=== PATIENT | male | born 1960 | race Caucasian/White ===

== ENCOUNTER 2023-01-05 14:50 | Emergency (ER) | payer OTHER, SELFPAY ==
[2023-01-05 14:53] VITALS: BP 160/90; PULSE 84; RESP 20; TEMP 36.8; O2SAT 100
--- NOTE | 2023-01-05 15:08 | ED.DENTAL ---
HPI - Dental/Oral General Chief complaint: Dental/Oral Stated complaint: facial swelling Time Seen by Provider: 01/05/23 15:02 Source: patient Mode of arrival: ambulatory Limitations: no limitations History of Present Illness HPI Narrative: 62-year-old male dental caries presents to the ER with left facial and left jaw swelling. He also complains of left lower and left upper tooth pain. He has had this for a couple of days. No fever or chills. MD Complaint: tooth pain Onset (ago): day(s) Duration: constant Severity: severe Relieving factors: nothing Exacerbating factors: cold and heat Context: history of dental caries Associated symptoms: gum swelling Treatment prior to arrival: none Related Data Allergies Allergy/AdvReac Type Severity Reaction Status Date / Time No Known Allergies Allergy Verified 01/05/23 15:10 Review of Systems Review of Systems: All systems reviewed & are unremarkable except as noted in HPI and below Constitutional: Constitutional: Reports as per HPI and Reports no additional constitutional complaints Eyes: Eyes: Reports as per HPI and Reports no additional eye complaints ENT: Reports system reviewed and no additional complaints, except as documented and Reports as per HPI Comments: Dental pain with left facial swelling with left upper jaw swelling Cardiovascular: Cardiovascular: Reports as per HPI and Reports no additional cardiovascular complaints Respiratory: Respiratory: Reports as per HPI and Reports no additional respiratory complaints Gastrointestinal: Gastrointestinal: Reports as per HPI Genitourinary: Genitourinary: Reports no additional male genitourinary complaints Musculoskeletal: Musculoskeletal: Reports no additional musculoskeletal complaints and Reports as per HPI Integumentary/Breasts: Skin/Breast: Reports system reviewed and no additional complaints, except as docu and Reports as per HPI Neurologic: Reports system reviewed and no additional complaints, except as documented and Reports as per HPI Psychiatric: Psychiatric: Reports no additional psychiatric complaints and Reports as per HPI Endocrine: Endocrine: Reports no additional endocrine complaints and Reports as per HPI Hematologic/Lymphatic: Hematologic/Lymphatic: Reports no additional hematologic/lymphatic complaints and Reports as per HPI Allergic/Immunologic: Allergic/Immunologic: Reports no additional allergic/immunologic complaints and Reports as per HPI PMF Past Medical History Medical History (Updated 01/05/23 @ 15:15 by Autsin Mansfield MD) Dental caries Social History Social History (System 09/04/19 @ 12:04 by Kaley Aguilar) Smoking status: Current every day smoker Exam Narrative: hypertension with a blood pressure of 160/90. Const: General: ill appearing Orientation/consciousness: patient oriented x3 Limitations: no limitations HENMT: Head: normal to inspection Ears: external ears normal Face/Nose/Sinus: Normal external nose present Face and sinus: normal facial exam Mouth: Yes Normal oral and palatal mucosa present Teeth and gingiva: dentition normal ( Extensive dental caries with multiple missing teeth. ) Throat: posterior oropharynx normal Other: Extensive dental caries with multiple fractured teeth. Swelling of gums around the carious teeth. Eyes: Conjunctivae: conjunctivae normal Pupils: Equal, round and reactive pupils present EOM: EOMs intact bilaterally Direct Ophthalmoscopy: no photophobia Neck: Neck: normal visual inspection, no lymphadenopathy and no meningeal signs Chest: Chest palpation & inspection: normal inspection of the chest Resp: Effort & Inspection: normal respiratory effort Auscultation: clear to auscultation bilaterally Cardio: Rate: regular rate Rhythm: regular rhythm GI: Auscultation: normal bowel sounds : General: Yes no CVA tenderness Back/Spine/Pelvis: Back: no CVA tenderness Skin: General skin
[2023-01-05] MEDS: HYDROcodone/acetaminophen (*CRX) 5-325 MG TABLET 1 TAB PO (15:15)
--- NOTE | 2023-01-05 15:43 | PC.NURSE ---
On 01/05/23, the student, [JW CLIFTON ], provided care and completed [facility] documentation on this patient. I have reviewed the student's documentation and agree with the findings.
== END 2023-01-05 15:25 | disposition home or self-care (01) ==
PROVIDERS: Emergency Provider Internal Medicine Critical Care Medicine
DX: K02.9 Dental caries, unspecified (principal); K04.7 Periapical abscess without sinus; F17.200 Nicotine dependence, unspecified, uncomplicated
CPT/HCPCS: 99283; A9270

== ENCOUNTER 2025-02-25 01:05 | Emergency (ER) | payer OTHER, SELFPAY ==
--- NOTE | ~2025-02-25 | XR_ITS ---
EXAMINATION: XR chest 1V portable DATE: 02/25/2025 04:11 INDICATION: Leukocytosis TECHNIQUE: frontal view of the chest was obtained. COMPARISON: Chest radiograph dated 04/08/2008 FINDINGS: Skinfold projects over the lateral right lung. Calcified nodule at the medial right lower lung consistent with old granulomatous disease. No other airspace opacities, pulmonary edema, pleural effusion or pneumothorax. Old bilateral rib fractures. IMPRESSION: 1. No acute cardiopulmonary disease. Reviewed, dictated and finalized at location A. H STRETCHER
--- NOTE | ~2025-02-25 | CT_ITS ---
CT HEAD NON-CONTRAST CT C-SPINE Clinical History: Patient is intoxicated. S/P FALL. POSTERIOR HEAD PAIN. Comparison: None Technique: Unenhanced axial images skull base to vertex. Coronal, sagittal reformats. Axial images thoracic inlet to skull base. Sagittal and coronal reformats. CT images acquired with automatic exposure control for dose reduction DLP: 681 mGy-cm Findings: Head: Sulci, ventricles: Unremarkable. No intracerebral hemorrhage. No evidence acute territorial infarct. No mass effect, midline shift, intra-/extra-axial fluid collection. Bony calvarium intact. Visualized paranasal sinuses: Clear. Mastoid air cells: Clear. 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 No acute fracture Grade 1 anterolisthesis C2 on 3, C7 on T1. Vertebral bodies normal height and alignment. Mild degenerative changes. Disc spaces maintained. Prevertebral soft tissues within normal limits. Visualized lung apices: Small foci airspace disease. Visualized thyroid: Unremarkable. No enlarged cervical nodes. IMPRESSION: HEAD: 1. No acute intracranial findings. C-SPINE: 1. No acute fracture. Reviewed, dictated and finalized at location R. [employer] EMPL[employer]EE IMPRESSION: HEAD: 1. No acute intracranial findings. C-SPINE: 1. No acute fracture.
[2025-02-25 01:05] VITALS: BP 140/98; PULSE 74; RESP 16; TEMP 36.8; O2SAT 98
--- NOTE | 2025-02-25 01:13 | ED.WEAKNESS ---
HPI - Weakness General Chief complaint: Weakness Stated complaint: unspecified Time Seen by Provider: 02/25/25 01:06 Source: patient Mode of arrival: ambulatory Limitations: altered mental status History of Present Illness HPI Narrative: 64-year-old male with a history of dental caries, methamphetamine abuse was dropped in the ER by his parents for --generalized weakness. No focal neuro deficits --patient has been having amphetamine/heroin. The patient had amphetamine/heroin 2 hours prior to coming to the ED. --numbness and tingling of his arms and legs. --suprapubic pain and dysuria. No fever or chills Denied chest pain or shortness of breath No nausea/vomiting/abdominal pain or diarrhea MD Complaint: generalized weakness Onset (ago): year(s) (Off and on for years.) Duration: intermittent Location: generalized Migration: none Severity: moderate Quality: tingling, numbness and other (He has numbness and tingling of his upper and lower extremities.) Relieving factors: none Exacerbating factors: none Associated symptoms: dysuria Related Data Allergies Allergy/AdvReac Type Severity Reaction Status Date / Time No Known Allergies Allergy Verified 02/25/25 01:14 Review of Systems Review of Systems: ROS unobtainable: Yes unobtainable due to mental status Constitutional: Constitutional: Reports as per HPI and Reports no additional constitutional complaints Eyes: Eyes: Reports as per HPI and Reports no additional eye complaints ENT: Reports system reviewed and no additional complaints, except as documented and Reports as per HPI Cardiovascular: Cardiovascular: Reports as per HPI and Reports no additional cardiovascular complaints Respiratory: Respiratory: Reports as per HPI and Reports no additional respiratory complaints Gastrointestinal: Gastrointestinal: Reports as per HPI and Reports no additional gastrointestinal complaints Genitourinary: Genitourinary: Reports dysuria Comments: Suprapubic abdominal pain Musculoskeletal: Musculoskeletal: Reports no additional musculoskeletal complaints and Reports as per HPI Integumentary/Breasts: Skin/Breast: Reports system reviewed and no additional complaints, except as docu and Reports as per HPI Neurologic: Reports system reviewed and no additional complaints, except as documented and Reports as per HPI Psychiatric: Psychiatric: Reports no additional psychiatric complaints and Reports as per HPI Endocrine: Endocrine: Reports no additional endocrine complaints and Reports as per HPI Hematologic/Lymphatic: Hematologic/Lymphatic: Reports no additional hematologic/lymphatic complaints and Reports as per HPI Allergic/Immunologic: Allergic/Immunologic: Reports no additional allergic/immunologic complaints and Reports as per [facility] Past Medical History Medical History Dental caries Social History Social History Smoking status: Current every day smoker Exam Narrative: Pulse is 74. Blood pressure 140/98. Oxygen saturation of 98% on room air with a respiratory rate of 16. Const: General: no acute distress Nutritional Appearance: thin Orientation/consciousness: confusion HENMT: Head: normal to inspection Ears: external ears normal Face/Nose/Sinus: Normal external nose present Face and sinus: normal facial exam Mouth: Yes Normal oral and palatal mucosa present Teeth and gingiva: dentition normal (Extensive dental caries) Throat: posterior oropharynx normal Eyes: Conjunctivae: conjunctivae normal Pupils: Equal, round and reactive pupils present EOM: EOMs intact bilaterally Neck: Neck: normal visual inspection, no lymphadenopathy and no meningeal signs Chest: Chest palpation & inspection: normal inspection of the chest Resp: Effort & Inspection: normal respiratory effort Auscultation: clear to auscultation bilaterally Cardio: Rate: regular rate Rhythm: regular rhythm GI: GI Palp: Yes Soft to palpation Auscultation: normal bowel sounds Other: Suprapubic tenderness. No rigidity/rebound : General: Yes no CVA tenderness Back/Spine/Pelvis: Back: no CVA tenderness Skin: Other: Erythematous rash over his extremities. Neuro: General: patient oriented x3, moves all extremities, no meningeal signs, no focal motor deficits and CN's II-XI intact bilaterally Cranial nerves: Yes Nystagmus not present Speech: normal speech Gait exam (Neuro): Normal gait present Extrem: General: normal to inspection Other: Contracture of both his hands Hands dry and the skin of his palms thick Psych: Mental Status: mental status grossly normal Attitude: cooperative Course Course Emergency Course: Amphetamine abuse/heroin abuse Altered mental status-no focal neuro deficits noted. CT of the head and C-spine did not show any acute findings. generalized weakness Suprapubic pain--UA does not show evidence of infection. Patient is noted to have 0-3 white blood cells. Chest x-ray revealed bibasilar opacities and a 1 cm lesion in the right medial lobe. Would treat with antibiotic and have the patient follow-up with his primary care physician Elevated LFTs--prior history of alcoholism. Patient needs a workup to rule out hepatitis Vital Signs Vital signs: Vital Signs Temperature 36.8 C 02/25/25 01:05 Pulse Rate 74 02/25/25 01:05 Respiratory Rate 16 02/25/25 01:05 Blood Pressure 140/98 H 02/25/25 01:05 Pulse Oximetry 98 02/25/25 01:05 Oxygen Delivery Room Air 02/25/25 01:05 Temperature 36.8 C 02/25/25 01:05 Pulse Rate 74 02/25/25 01:05 Respiratory Rate 16 02/25/25 01:05 Blood Pressure 140/98 H 02/25/25 01:05 Pulse Oximetry 98 02/25/25 01:05 Oxygen Delivery Room Air 02/25/25 01:05 MDM [facility] Narrative Medical decision making narrative: Questionable accidental fall--CT of the head and C-spine does not show any acute findings. Generalized weakness with altered mental status--no focal neuro deficit. Altered mental status possibly secondary to amphetamine abuse. CT of the head did not show any acute findings. Chest x-ray reveals bibasilar opacities with a 1 cm hypodense lesion in the right middle lobe. Will treat with a course of antibiotics and have the patient follow-up with primary care physician for further workup Elevated LFTs Amphetamine/heroin abuse Differential Diagnosis Differential Diagnosis: Head injury. Concussion Lab Data [facility] Lab Attestation statement: I personally reviewed the patient's lab results. 02/25/25 02:07 02/25/25 02:07 Labs: Lab Results 02/25/25 02/25/25 Range/Units 02:07 03:15 WBC 17.9 H (4.8-10.8) K/mm3 RBC 4.64 L (4.70-6.10) M/mm3 Hgb 12.8 L (14.0-18.0) g/dL Hct 39.6 L (40.0-54.0) % MCV 85.3 (78.0-102.0) fL MCH 27.6 (27.0-31.0) pg MCHC 32.3 (32-36) g/dL RDW 15.2 H (11.6-14.4) % Plt Count 305 (150-420) K/mm3 MPV 9.7 (8.7-11.0) fl Immature Gran % (Auto) Not Reportable Neut % (Auto) Not Reportable Lymph % (Auto) Not Reportable Franklin % (Auto) Not Reportable Eos % (Auto) Not Reportable Baso % (Auto) Not Reportable Lymph # (Auto) Not Reportable [place] # (Auto) Not Reportable Eos # (Auto) Not Reportable Baso # (Auto) Not Reportable Abs Immat Gran (auto) Not Reportable Absolute Neuts (auto) Not Reportable Absolute Nucleated RBC Not Reportable Total Counted 100 Neutrophils % (Manual) 34 L (46-73) % Band Neutrophils % 1 (0-6) % Lymphocytes % (Manual) 63 H (18-44) % Monocytes % (Manual) 1 L (3-9) % Eosinophils % (Manual) 1 (1-6) % Nucleated RBC % Not Reportable Abs Neuts (Manual) 6.26 (1.3-6.7) K/mm3 Abs Lymphs (Manual) 11.27 H (1.1-4.5) K/mm3 Abs Monocytes (Manual) 0.17 (0.1-0.90) K/mm3 Absolute Eos (Manual) 0.17 (0.02-0.50) K/mm3 Platelet Estimate Adequate (Adequate) Schistocytes None seen Sodium 141 (137-145) mmol/L Potassium 3.5 (3.4-5.0) mmol/L Chloride 102 (98-107) mmol/L Carbon Dioxide 34 H (22-30) mmol/L Anion Gap 5 (4-12) mmol/L BUN 7 L (9-20) mg/dL Creatinine 0.42 L (0.7-1.3) mg/dL Estim Creat Clear Calc 164 ml/min Estimated GFR > 60 (59 - ) Glucose 64 L (65-110) mg/dL Calculated Osmolality 288 (285-295) mOsm/kg Calcium 8.8 (8.4-10.2) mg/dL Total Bilirubin 0.3 (0.2-1.3) mg/dL AST 86 H (17-59) U/L ALT 72 H (6-50) U/L Alkaline Phosphatase 86 (38-126) U/L Troponin I < 0.012 (0.000-0.034) ng/mL Total Protein 6.5 (6.3-8.2) g/dL Albumin 4.0 (3.5-5.1) g/dL Lipase 101 (23-300) U/L Urine Color Yellow (Yellow) Urine Appearance Sl cloudy A (Clear) Urine pH 6.0 (5.0-8.0) Ur Specific [place] 1.020 (1.010-1.020) Urine Protein Trace H (Negative) Urine Glucose (UA) 2+ H (Negative) Urine Ketones Trace H (Negative) Ur Blood (Man) Negative (Negative) Urine Nitrate Positive H (Negative) Urine Bilirubin Negative (Negative) Urine Urobilinogen 0.2 (0.2-1.0) mg/dL Leukocyte Esterase Rfl Negative (Negative) JOHAN/UL Urine RBC 0-2 (0-2) /hpf Urine WBC 0-3 (0-3) /hpf Urine WBC Clumps Present H (None) /hpf Urine Bacteria 3+ H (None) /hpf Urine Mucus Heavy H /lpf Imaging Data My impression: Chest x-ray revealed bibasilar opacities the 1 cm hyperdense lesion in the right middle lobe. ECG Data EKG #1: Attestation: I personally reviewed and interpreted this ECG as follows: ECG completion date: 02/25/25 ECG completion time: 01:28 Interpretation: Ectopic atrial rhythm with a rate of 75. Normal axis. Normal intervals. No acute ST-T changes noted. Discharge Plan Discharge Clinical Impression: Drug abuse, Infiltrate of both lungs present on imaging study, Transaminitis, Weakness generalized Patient Disposition: Home Condition: Stable Instructions: Antibiotic Form, Bacterial Pneumonia (ED), Polysubstance Use Disorder (ED), Pulmonary Nodules (ED) Additional Instructions: Advised to follow-up with primary care physician to evaluate his pulmonary opacities Patient Language: Tajik Prescriptions: New amoxicillin-pot clavulanate 875-125 mg tablet 1 tablet PO Q12H Qty: 14 0RF Follow-up/Referrals: UNKNOWN,DOCTOR [Non-Staff] Time of Disposition: 04:27
--- NOTE | 2025-02-25 01:20 | ECG_ITS ---
Test Date: 2025-02-25 01:26:54 Measurements Intervals [place] Rate: 75 P: -78 IN: 166 QRS: 76 QRSD: 89 T: 68 QT: 385 QTc: 431 Interpretive Statements SINUS RHYTHM MINMAL WAVES- INF/LAT LEADS BASELINE ARTIFACT- I, II, III, AVR, AVL, AVF, V1-V6 BORDERLINE ECG No previous ECG available for comparison Electronically Signed On 02-25-2025 06:09:27 [employer] OPERATOR by James Torrez D.O.
[2025-02-25 02:18] LABS: Hematocrit 39.6 % (40.0-54.0); Hemoglobin 12.8 g/dL (14.0-18.0); Mean Corpuscular HGB Conc 32.3 g/dL (32-36); Mean Corpuscular Hemoglobin 27.6 pg (27.0-31.0); Mean Corpuscular Volume 85.3 fL (78.0-102.0); Platelet Count Result 305 K/mm3 (150-420); Red Blood Count 4.64 M/mm3 (4.70-6.10); White Blood Count 17.9 K/mm3 (4.8-10.8)
[2025-02-25 02:42] LABS: Lipase 101 U/L (23-300)
[2025-02-25 02:43] LABS: Alanine Aminotransferase 72 U/L (6-50); Albumin Level 4.0 g/dL (3.5-5.1); Alkaline Phosphatase 86 U/L (38-126); Anion Gap 5 mmol/L (4-12); Aspartate Amino Transferase 86 U/L (17-59); Bilirubin,Total 0.3 mg/dL (0.2-1.3); Blood Urea Nitrogen 7 mg/dL (9-20); Calcium 8.8 mg/dL (8.4-10.2); Carbon Dioxide 34 mmol/L (22-30); Chloride 102 mmol/L (98-107); Estimated CRCL calculation 164 ml/min; Estimated Glomerular Filt Rate > 60; Glucose 64 mg/dL (65-110); Osmolality Calculated 288 mOsm/kg (285-295); Potassium 3.5 mmol/L (3.4-5.0); Sodium 141 mmol/L (137-145); Total Protein 6.5 g/dL (6.3-8.2)
[2025-02-25 02:54] LABS: Troponin I < 0.012 ng/mL (0.000-0.034)
[2025-02-25 03:42] LABS: Add Urine Microscopic? YES; Glucose Urine UA 2+ (Negative); Leukocyte Esterase Ur Negative LEU/UL (Negative); Nitrate Urine Positive (Negative); Specific Grav Ur 1.020 (1.010-1.020)
[2025-02-25 03:57] LABS: Appearance Urine Sl Cloudy (Clear)
[2025-02-25 04:14] LABS: Total Cells Counted 100
[2025-02-25 04:15] LABS: Band Neutrophils Percent 1 % (0-6); Eosinophils Absolute Manual 0.17 K/mm3 (0.02-0.50); Eosinophils Percent Manual 1 % (1-6); Lymphocytes Absolute Manual 11.27 K/mm3 (1.1-4.5); Lymphocytes Percent Manual 63 % (18-44); Monocytes Absolute Manual 0.17 K/mm3 (0.1-0.90); Monocytes Percent Manual 1 % (3-9); Neutrophils Absolute Manual 6.26 K/mm3 (1.3-6.7); Neutrophils Percent Manual 34 % (46-73); Schistocytes None Seen
--- NOTE | 2025-02-27 13:02 | PC.NURSE ---
urine, final , less than 10,000 bacteria, no change in abt needed.
== END 2025-02-25 05:30 | disposition home or self-care (01) ==
PROVIDERS: Emergency Provider Internal Medicine Critical Care Medicine; PCP Family Medicine
DX: F19.10 Other psychoactive substance abuse, uncomplicated (principal); R91.8 Other nonspecific abnormal finding of lung field; R74.01 Elevation of levels of liver transaminase levels; R53.1 Weakness; F17.200 Nicotine dependence, unspecified, uncomplicated
CPT/HCPCS: 36415; 70450; 71045; 72125; 80053; 81001; 82948; 83690; 84484; 85025; 87086; 93005; 99284; A9270

== ENCOUNTER 2025-02-26 14:01 | Emergency (ER) | payer OTHER, SELFPAY ==
[2025-02-26 14:01] VITALS: O2SAT 100
[2025-02-26 14:03] VITALS: BP 155/89; PULSE 88; RESP 14; TEMP 37; O2SAT 100
--- NOTE | 2025-02-26 14:38 | ED_ITS ---
HPI - URI/Sore Throat General Chief Complaint: Upper Respiratory Infection Stated Complaint: headache Time Seen by Provider: 02/26/25 14:05 History of Present Illness HPI Narrative: 64-year-old white male, lifelong heavy smoker, reports she was seen yesterday after about a week of coughing, was diagnosed with pneumonia, started on antibiotics, and discharged. He reports today he is not any better, reports that he was unable to get any sleep last night because he is staying at his br other's house. His brother is currently hospitalized for poly substance rehab. The patient reports that there are several of his acquaintances stay at us, actively using drugs, getting in arguments with each other, and they are so loud he was unable to get any sleep last night. He is asking to be hospitalized so he can get a quiet night sleep. There has been no fever or chills, no worsening of his coughing, no worsening of any shortness of breath, no nausea or vomiting. He repeatedly talks about how and wheezy, and uncomfortable it is, and how they are all using drugs. He then starts talking about he is trying to get police today evict them, or rest them for drug use. He repeatedly request to be admitted stating he is just so tired from their noise. Related Data Allergies Allergy/AdvReac Type Severity Reaction Status Date / Time No Known Allergies Allergy Verified 02/26/25 14:05 Review of Systems Review of Systems: ROS is negative except as in HPI [facility] Past Medical History Medical History Dental caries Social History Social History Smoking status: Current every day smoker Exam Narrative: Awake, alert, well oriented, looks significantly older than his stated age, skin changes consistent with longstanding tobacco abuse, alcohol abuse, patient has extensive nicotine staining, however he is in no respiratory difficulty, pulse ox is 100%, and he does not appear ill or toxic Const: General: cooperative, healthy appearing, comfortable, no acute distress, well developed, alert, awake and Physically active Orientation/consciousness: patient oriented x3 HENMT: Head: normal to inspection, normocephalic and atraumatic Ears: hearing grossly normal bilaterally and external ears normal Face/Nose/Sinus: Normal external nose present, Normal nares present, Normal nasal mucous membranes and turbinates present and normal facial exam Face and sinus: normal facial exam Mouth: Yes Normal oral and palatal mucosa present, Yes lip normal, Yes tongue normal, Yes oropharynx normal and Yes moist mucous membranes Teeth and gingiva: dentition normal Throat: posterior oropharynx normal and tonsils normal ( erythematous) Eyes: General: appearance normal, both eyes and all related structures Alignment and Position: alignment normal and position normal Periorbital: periorbital findings normal Eyelids: eyelids normal Conjunctivae: conjunctivae normal Sclera: sclerae normal Cornea: corneas normal Pupils: Equal, round and reactive pupils present EOM: EOMs intact bilaterally Neck: Neck: normal visual inspection, full ROM and no lymphadenopathy Chest: Chest palpation & inspection: normal inspection of the chest Resp: Effort & Inspection: normal respiratory effort, able to speak in complete sentences, no audible wheezes, no respiratory distress and no use of accessory muscles Auscultation: not clear to auscultation bilaterally and rhonchi Cardio: Jugular venous distension: no JVD Rate: regular rate Rhythm: regular rhythm GI: Inspection: normal to inspection GI Palp: No abdominal tenderness, No Tenderness to palpation present (GI), No Guarding due to palpation present (GI), No No hepatosplenomegaly present, No Palpable mass present and No Rebound tenderness present Skin: General skin exam: No normal color (See above), no rashes or lesions noted, elasticity normal and turgor normal Neuro: General: patient oriented x3, gait normal, tone normal and moves all extremities Cranial nerves: Yes CN's II-XII intact bilaterally, Yes Equal, round and reactive pupils present and Yes Bilaterally intact EOM present Speech: normal speech Motor exam (neuro): 5/5 motor strength present throughout and Normal motor muscle tone present throughout Sensory Exam: n ormal sensation Extrem: General: normal to inspection, normal exam except as noted and no pedal edema Psych: Appearance: grossly normal, poorly kempt and disheveled Mental Status: mental status grossly normal Speech and movement: Normal speech and movement present Affect: normal affect Attitude: cooperative Thought process: abnormal and Illogical thought process present (Wants to be admitted for a quiet night sleep) Course Course Emergency Course: Differential diagnosis includes but is not limited to persistent pneumonia, an adequate time for healing, manipulative behavior, polysubstance abuse Patient's x-ray from yesterday was reviewed there actually is no pneumonia, he is actually being treated for bronchitis. Labs were essentially unremarkable, he did have an elevated white count, but he has no fever today, no wheezing, no shortness of breath, no fever or chills, his pulse ox 100% on room air, and there is no indication for repeat blood work, no indication for repeat x-ray, patient agrees that there has been no worsening of his symptoms, and repeatedly describes all the circumstances around why where he is staying is loud and noisy and he wants to be admitted for quite nicely. I explained that is not a reason for admission. He reports have multiple other gas are using poly substances, review of his record showed methamphetamines, amphetamines, fentanyl, and he is smoking heavy, and he is drinking heavy. I explained to him he might want to be careful having police out to evict the other people and that with his polysubstance abuse he may be arrested as well. I have encouraged him to either eject the other individuals, or stay somewhere else and to avoid tobacco, amphetamines, meth, fentanyl. He is to follow up with his doctor in 1 week. He is to take the medications prescribed yesterday He is to return if worsens Medical decision making complex the wrist was low Vital Signs Vital signs: Vital Signs Pulse Oximetry 100 02/26/25 14:01 Oxygen Delivery Room Air 02/26/25 14:01 Temperature 37.0 C 02/26/25 14:03 Pulse Rate 74 02/26/25 14:50 Respiratory Rate 18 02/26/25 14:50 Blood Pressure 115/65 02/26/25 14:50 Pulse Oximetry 100 02/26/25 14:50 Oxygen Delivery Room Air 02/26/25 14:50 MDM Differential Diagnosis Differential Diagnosis: Differential diagnosis was in ED course Discharge Plan Discharge Clinical Impression: Polysubstance abuse, Malaise Acute bronchitis Qualifiers: Bronchitis organism: unspecified organism Qualified Code(s): J20.9 - Acute bronchitis, unspecified Patient Disposition: Home Condition: Stable Instructions: Antibiotic Form, How to Stop Smoking (ED), Acute Bronchitis (ED), Abuse of Alcohol (ED), Methamphetamine Use Disorder (ED), Polysubstance Use Disorder (ED), Opioid Use Disorder (ED) Additional Instructions: Continue your medications as prescribed yesterday Stop smoking Stop using fentanyl Stop using methamphetamines Stop using amphetamines If the people they were staying with are smoking heavily, using all these same substances, and are fighting throughout the night to keep you from getting sleep, then stay somewhere else but you will also have to stop smoking, and stop using the substances, and participate in your own healthcare. Increase fluid Good nutrition Plenty of rest Follow-up with the physician you were referred to yesterday Return to the emergency department if your illness worsens, Patient Language: [place] Leonean Prescriptions: No Action amoxicillin-pot clavulanate 875-125 mg tablet 1 tablet PO Q12H Qty: 14 0RF Follow-up/Referrals: UNKNOWN,DOCTOR [Non-Staff] Time of Disposition: 14:47
[2025-02-26 14:50] VITALS: BP 115/65; PULSE 74; RESP 18; O2SAT 100
== END 2025-02-26 14:50 | disposition home or self-care (01) ==
PROVIDERS: Emergency Provider Emergency Medicine; Referring Provider Family Medicine
DX: F19.10 Other psychoactive substance abuse, uncomplicated (principal); R53.81 Other malaise; J20.9 Acute bronchitis, unspecified; F17.200 Nicotine dependence, unspecified, uncomplicated
CPT/HCPCS: 99281

== ENCOUNTER 2025-03-08 15:53 | Outpatient (CLI) | payer OTHER, SELFPAY ==
--- NOTE | 2025-03-08 | CONSULT_PTH ---
PATIENT: Dung Camilo LOC: [facility]#:[id number] AGE/SX: 64/M ROOM: RE03/08/[address]: Esequiel Bryant MD : 1960 BED: DIS: 03/08/2025 SPEC #: [id number] RECD: 03/08/25 17:23 STATUS: MAX REQ #: [id number] BRIDGET: 03/08/25 00:[address]: Esequiel Bryant DEPT: [facility] Consult RECD BY: Ira Balderas MLT, [facility] Tissues: A - Peripheral Smear Procedures: Hematology Consult
--- NOTE | ~2025-03-08 | XR_ITS ---
EXAMINATION: XR hand LT min 3V, 03/08/2025 16:25 HPLC CHEMIST HISTORY: b/l hand pain, NKI. COMPARISON: No comparisons available. Findings: No acute fracture or malalignment. 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 Soft tissues unremarkable. Impression: No acute fracture or malalignment. Reviewed, dictated and finalized at location P. CHEMIST Impression: No acute fracture or malalignment.
--- NOTE | ~2025-03-08 | XR_ITS ---
EXAMINATION: XR hand RT min 3V, 03/08/2025 16:25 [employer] HISTORY: b/l hand pain, NKI. COMPARISON: No comparisons available. Findings: No acute fracture or malalignment. 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 Impression: No acute fracture or malalignment. Reviewed, dictated and finalized at location P. [employer]IST Impression: No acute fracture or malalignment.
[2025-03-08 16:27] LABS: Hematocrit 43.1 % (40.0-54.0); Hemoglobin 13.7 g/dL (14.0-18.0); Immature Granulocyte Percent A 0.4 % (0.0-0.0); Lymphocytes Absolute Auto 15.66 K/mm3 (1.10-4.50); Mean Corpuscular HGB Conc 31.8 g/dL (32-36); Mean Corpuscular Hemoglobin 27.3 pg (27.0-31.0); Mean Corpuscular Volume 85.9 fL (78.0-102.0); Nucleated Red Blood Cells Absolute Auto 0.00 K/mm3 (0.00-0.00); Nucleated Red Blood Cells Perc 0.0 % (0-0.0); Platelet Count Result 423 K/mm3 (150-420); Red Blood Count 5.02 M/mm3 (4.70-6.10); White Blood Count 25.2 K/mm3 (4.8-10.8)
[2025-03-08 16:38] LABS: Add Urine Microscopic? NO; Appearance Urine Clear (Clear); Glucose Urine UA Negative (Negative); Leukocyte Esterase Ur Negative (Negative); Nitrate Urine Negative (Negative); Specific Grav Ur 1.020 (1.010-1.020)
[2025-03-08 16:47] LABS: Alanine Aminotransferase 48 U/L (6-50); Albumin Level 4.8 g/dL (3.5-5.1); Alkaline Phosphatase 100 U/L (38-126); Anion Gap 12 mmol/L (4-12); Aspartate Amino Transferase 52 U/L (17-59); Bilirubin,Total 0.4 mg/dL (0.2-1.3); Blood Urea Nitrogen 13 mg/dL (9-20); CRP < 0.5 mg/dL (<1.0); Calcium 10.0 mg/dL (8.4-10.2); Carbon Dioxide 25 mmol/L (22-30); Chloride 105 mmol/L (98-107); Estimated Glomerular Filt Rate > 60; Glucose 146 mg/dL (65-110); Osmolality Calculated 297 mOsm/kg (285-295); Potassium 4.3 mmol/L (3.4-5.0); Sodium 142 mmol/L (137-145); Total Protein 7.6 g/dL (6.3-8.2); Uric Acid 4.3 mg/dL (3.5-8.5)
[2025-03-08 16:53] LABS: Hemoglobin A1C 5.5 % (<5.7)
[2025-03-08 17:04] LABS: Band Neutrophils Percent 0 % (0-6); Basophils Absolute Manual 0.00 K/mm3 (0-0.1); Basophils Percent Manual 0 % (0-1); Eosinophils Absolute Manual 0.00 K/mm3 (0.02-0.50); Eosinophils Percent Manual 0 % (1-6); Lymphocytes Absolute Manual 17.13 K/mm3 (1.1-4.5); Lymphocytes Percent Manual 68 % (18-44); Monocytes Absolute Manual 0.25 K/mm3 (0.1-0.90); Monocytes Percent Manual 1 % (3-9); Neutrophils Absolute Manual 7.81 K/mm3 (1.3-6.7); Neutrophils Percent Manual 31 % (46-73); Smudge Cells PRESENT; Total Cells Counted 100
[2025-03-08 17:11] LABS: Prostate Specific Antigen 0.3 ng/mL (< OR = 4.0); Thyroid Stimulating Hormone 2.350 uIU/mL (0.465-4.680)
[2025-03-08 17:13] LABS: HIV 1 P24 AG Negative (Negative); HIV 1/2 AB Negative (Negative)
[2025-03-09 08:29] LABS: Trichomonas Vag PCR NOT DETECTED (NOT DETECTE)
[2025-03-10 06:07] LABS: RPR Non Reactive (Non Reactive)
[2025-03-10 13:08] LABS: Anti-CCP Ab, IgG/IgA 9 units (0-19)
[2025-03-12 12:08] LABS: ANA by IFA Rfx Titer/Pattern Positive (.); ANA by IFA Rfx YES YES
== END 2025-03-08 15:54 | disposition home or self-care (01) ==
LOC: CHSLAB 15:56
PROVIDERS: PCP Family Medicine; Visit Provider Family Medicine
DX: M13.0 Polyarthritis, unspecified (principal); R30.0 Dysuria; R53.83 Other fatigue; R73.9 Hyperglycemia, unspecified; R21 Rash and other nonspecific skin eruption; M79.641 Pain in right hand; M79.642 Pain in left hand; Z12.5 Encounter for screening for malignant neoplasm of prostate
CPT/HCPCS: 36415; 73130; 80053; 81003; 83036; 84153; 84443; 84550; 85025; 85652; 86038; 86140; 86200; 86364; 86430; 86592; 87077; 87086; 87088; 87186; 87491; 87591; 87661; 87806; G0103